=== PATIENT | male | born 1955 | race Hispanic/Latino ===

== ENCOUNTER 2018-09-05 19:54 | Emergency (ER) | payer BC, MEDICARE ==
[2018-09-05] MEDS ORDERED: cloNIDine 0.1 MG TAB ONE (20:14)
[2018-09-05] MEDS ORDERED: Oxymetazoline HCl 0.05% ( 15 ML ) ONE (20:14)
[2018-09-05] MEDS ORDERED: Amlodipine 5 MG TAB ONE (22:05)
== END 2018-09-05 23:21 | disposition home or self-care (01) ==
LOC: ERS 19:54
DX: R04.0 Epistaxis (principal); I10 Essential (primary) hypertension; Z91.14 Patient's other noncompliance with medication regimen; E78.00 Pure hypercholesterolemia, unspecified; F17.210 Nicotine dependence, cigarettes, uncomplicated
CPT/HCPCS: 99283